=== PATIENT | female | born 1970 | race Caucasian/White ===

== ENCOUNTER 2017-01-17 18:04 | Emergency (ER) | payer OTHER ==
[~2017-01-17] VITALS: Ht 160 cm; Wt 77.1 kg
[2017-01-17 18:04] VITALS: BP 141/82; PULSE 94; RESP 20; TEMP 98; O2SAT 98
--- NOTE | 2017-01-17 18:09 | NUR ---
Pt placed to ER bed 8, report given to TINA Smith.
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
--- NOTE | 2017-01-17 18:58 | NUR ---
Dr. Jackson at bedside examining patient.
[2017-01-17] MEDS ORDERED: IBUPROFEN 800 MG TABLET PO ONE (19:30)
--- NOTE | 2017-01-17 19:49 | NUR ---
Patient given written and verbal discharge instructions and verbalizes understanding. ER MD discussed with patient the results and treatment provided. Patient in stable condition. ID arm band removed. Rx of motrin, norco given. Patient educated on pain management and to follow up with PMD. Pain Scale 0/10. Opportunity for questions provided and answered.
[2017-01-17 19:51] VITALS: BP 141/82; PULSE 89; RESP 20; TEMP 98; O2SAT 98
== END 2017-01-17 19:50 | disposition home or self-care (01) ==
LOC: SED 18:04
DX: S16.1XXA Strain of muscle, fascia and tendon at neck level, initial encounter (principal); R03.0 Elevated blood-pressure reading, without diagnosis of hypertension; V89.2XXA Person injured in unspecified motor-vehicle accident, traffic, initial encounter; Y93.89 Activity, other specified; Y92.488 Other paved roadways as the place of occurrence of the external cause; Y99.8 Other external cause status
CPT/HCPCS: 72040-TC; 99284